=== PATIENT | male | born 1955 | race Caucasian/White ===

== ENCOUNTER 2016-10-01 07:42 | Day surgery (SDC) | payer OTHER ==
[2016-09-27 13:45] LABS: HEMOGLOBIN 13.5 g/dL (13.6-17.8)
[2016-09-27 13:48] LABS: HEMATOCRIT 39.5 % (40.0-51.0)
[2016-09-27 14:01] LABS: BUN (BLOOD UREA NITROGEN) 11 MG/DL (6-23); CALCIUM, SERUM 8.7 MG/DL (8.5-10.4); CHLORIDE, SERUM 106 MMOL/L (96-112); CO2 (CARBON DIOXIDE) 30 MMOL/L (24-34); CREATININE 1.28 MG/DL (0.70-1.30); GFR AFRICAN AMERICAN 69 ML/MIN (>=60); GFR NON AFRICAN AMERICAN 60 ML/MIN (>=60); GLUCOSE, SERUM 136 MG/DL (60-99); POTASSIUM, SERUM 4.5 MMOL/L (3.5-5.3); SODIUM, SERUM 141 MMOL/L (135-148)
--- NOTE | ~2016-10-01 | OP ---
Record Of Operation [facility] [address] [place]. [address] NAME: RENE AVALOS : 53 STATUS : REG [facility] [place] PAT#: [id number] AGE: 61 ADM/REG DATE : 10/01/16 MR#: [id number] REPORT SERV DATE: 10/01/16 DICTATED BY: Nnao FORBES DATE: 10/01/16 REPORT STATUS : Draft TRANSCRIBED BY: MODL DATE: 10/01/16 DATE OF PROCEDURE: 10/01/2016 PREOPERATIVE DIAGNOSIS: Bilateral abnormal renal pelvic urothelium. POSTOPERATIVE DIAGNOSIS: Bilateral abnormal renal pelvic urothelium. PROCEDURES: Cystoscopy, left retrograde pyelography, ureteral dilation, selective left renal urine for cytology, left flexible ureteroscopy, placement of double-J stent; right retrograde pyelography, right ureteral dilation, right renal urine for cytology, flexible ureteroscopy, and placement of right double-J stent. SURGEON: Nano Forbes M.D. ANESTHESIA: General endotracheal. COMPLICATIONS: None. DRAINS: 1. 7-Nauruan x 24 cm Contour left double-J stent. 2. 7-Nauruan x 24 cm right Contour double-J stent. BRIEF HISTORY: Mr. Avalos is a 61-year-old white male, seen by me recently for an abnormal CT angiogram that showed abnormal enhancement in both renal pelves consistent with transitional cell carcinoma. He denies gross hematuria or flank pain, but he is a smoker. We discussed the need to manage this with upper tract imaging, bilateral cytology, ureteroscopy, and stent placement. The risks of bleeding, infection, anesthesia, injury to adjacent organs, inability to find malignancy even if present were discussed. There were no unanswered questions. DESCRIPTION OF PROCEDURE: Under excellent general anesthesia, the patient was prepped and draped in a standard lithotomy position. Cystoscopy was performed with the 30-degree lens, revealed a normal anterior urethra. The posterior urethra showed some lateral lobe BPH. Inspection of the bladder revealed normal orifices bilaterally effluxing clear urine with no evidence of tumor, stone, or foreign body. An 8-Nauruan cone-tipped catheter was used to perform a left retrograde pyelogram. It showed a normal caliber ureter and a normal- appearing renal pelvis and caliceal system without evidence of filling defect or obstruction. I used a 5-Nauruan open-ended catheter filled with normal saline and placed it up the left ureter to the renal pelvis where a barbotaged sample for cytology was taken and sent as sample #1. I then replaced the wire into the renal pelvis and put a 9/11 ureteral access sheath, first putting the inner cannula and then the entire sheath up to the level of the proximal ureter. Over the wire, a flexible ureteroscope was inserted to the level of the renal pelvis and accessible calices were visually inspected and no papillary lesion was noted. I replaced the wire, retrofitted it into the cystoscope, and placed a 7-Nauruan x 24 cm Contour double-J stent which coiled nicely in the renal pelvis and bladder. Record Of Operation [facility] [address] [place]. [address] NAME: RENE AVALOS : 53 STATUS : REG [facility] [place] PAT#: [id number] AGE: 61 ADM/REG DATE : 10/01/16 MR#: [id number] REPORT SERV DATE: 10/01/16 DICTATED BY: Nano FORBES DATE: 10/01/16 REPORT STATUS : Draft TRANSCRIBED BY: PHILLIP DATE: 10/01/16 I then reinserted the cystoscope and used an 8-Nauruan cone-tipped catheter to perform a right retrograde pyelogram. Again, it showed a normal-caliber ureter without filling defect or obstruction. There was 1 or 2 air bubbles noticed. The renal pelvis was unobstructed without visible filling defect. I used a fresh 5-Nauruan open-ended catheter filled with normal saline to the level of the right renal pelvis and similarly obtained a barbotaged specimen for cytology. This was sent as specimen #2. I replaced the wire in the renal pelvis and used the 9/11 ureteral access sheath similarly as on the left side with the inner cannula being used to dilate first and then the entire sheath being elevated to the level of the right proximal ureter. The flexible ureteroscope was inserted on the right side and again the renal pelvis and the accessible calices were inspected. There was no suspicious lesion, erythema, or other abnormality noted. I left the collecting system dilutely opacified, retrofitted the wire into the cystoscope, and again placed a 7-Nauruan x 24 cm Contour double-J stent which coiled nicely in the renal pelvis and bladder. It was noted that there was some pyelovenous and/or pyelolymphatic backflow on the right. The patient tolerated the procedure well and the case was terminated. I planned to discharge Mr. Avalos as an outpatient with the following instructions. DISCHARGE INSTRUCTIONS: 1. Home today. 2. Hydrocodone 5/325 one to two p.o. q.4 hours p.r.n. pain, #20. 3. Pyridium 200 mg one p.o. t.i.d. p.r.n. bladder pain, #15 with three refills. 4. Follow up in my office next week to review pathology. If he wants to have both stents removed in the office, we could do that. The other option would be to put him back to sleep which might be a more favorable proposition. PEDRO LUIS/PHILLIP Nano Forbes M.D. / [id number] CC: Nat Lopes M.D. C. Samuel Ledford, M.D.
[~2016-10-01 07:42] MED LIST: ASA5GR PO; ASAB PO; BRILINTA90 MG PO; CHANTIX0.5 PO; CHANTIX1 PO; COREG12 PO; COREG3 PO; IMDUR30 PO; KLOR-CON 1010 MEQ PO; KLOR-CON M1010 MEQ PO; L40 PO; L80 PO; LIPITOR40 PO; NITROSTAT0.4 MG SL; PLAVIX PO; PRIN10 PO; SPIRO25 PO; ULTRAM50 PO
== END 2016-10-01 18:23 | disposition home or self-care (01) ==
LOC: SDC 07:42
PROC: BT14ZZZ Fluoroscopy of Kidneys, Ureters and Bladder (ICD-10-PCS; 2016-10-01)
PROC: 0T788DZ Dilation of Bilateral Ureters with Intraluminal Device, Via Natural or Artificial Opening Endoscopic (ICD-10-PCS; 2016-10-01)
PROC: 0T788DZ Dilation of Bilateral Ureters with Intraluminal Device, Via Natural or Artificial Opening Endoscopic (ICD-10-PCS; principal; 2016-10-01 09:45)
DX: N28.89 Other specified disorders of kidney and ureter (principal); N13.5 Crossing vessel and stricture of ureter without hydronephrosis; E78.00 Pure hypercholesterolemia, unspecified; I11.0 Hypertensive heart disease with heart failure; M19.90 Unspecified osteoarthritis, unspecified site; F17.210 Nicotine dependence, cigarettes, uncomplicated; I50.9 Heart failure, unspecified; I25.10 Atherosclerotic heart disease of native coronary artery without angina pectoris; Z95.5 Presence of coronary angioplasty implant and graft; Z79.01 Long term (current) use of anticoagulants; Z90.89 Acquired absence of other organs; Z98.890 Other specified postprocedural states; Z79.899 Other long term (current) drug therapy; Z79.82 Long term (current) use of aspirin
CPT/HCPCS: 80048; 85014; 85018; 88112; 93005; 94640; A9270-GY; C1758; C1874; C1894; C2617; J2250; J2370; J2405; J2710; J3010; Q9967